=== PATIENT | female | born 1930 | race Caucasian/White ===

== ENCOUNTER 2017-03-21 09:25 | Day surgery (SDC) | payer MEDICARE ==
[2017-03-20 10:08] VITALS: BMI 36.7
[2017-03-21] MEDS ORDERED: Diprivan 20 ML ONE (11:35)
[2017-03-21] MEDS ORDERED: Propofol 200 MG/20 ML VIAL ONE (11:44)
--- NOTE | 2017-03-21 16:51 | OP ---
DATE OF PROCEDURE: 03/21/2017 PROCEDURE: Cardioversion. REFERRING PHYSICIAN: . REASON FOR PROCEDURE: Mrs. Alexander is an 86-year-old woman with prior history of CHF, nonischemic ca rdiomyopathy, paroxysmal atrial fibrillation, who also has complete AV block, she has a BIV ICD in [facility]. She is here on uninterrupted Xarelto anticoagulation. Hence recurrent atrial flutter, we are attempting atrial pace termination and possible cardioversion. Overdrive atrial pacing was attempt ed through the device and turned the patient into atrial fibrillation, which was not paced . S ubsequent to that, a synchronized 35 joule internal shock promptly converted her back to sinus rhyth m. CONCLUSION: 1. Successful internal cardioversion through device. 2. Atrial tachycardia was affected by overdrive pacing, but turned into atrial fibrillation, not si nus rhythm. 3. Adequate functioning biventricular implantable cardioverter defibrillator, although very much ne jenng elective replacement indicator at 2.63 volts and she will be scheduled for generator replaceme nt in near date.
--- NOTE | 2017-03-21 23:32 | OP ---
DATE OF PROCEDURE: 03/21/2017 PROCEDURE: Noninvasive program stimulation stress, implantable cardioverter/defibrillator interroga tion. REASON FOR PROCEDURE: Ms. Alexander is an 86-year-old female who had history of complete AV block, biv entricular ICD implant. She converted into a sustained atypical atrial flutter and she has symptoms suggestive that she might benefit from maintenance of sinus rhythm. The patient is on Xarelto for chronic anticoagulation without interruption. PROCEDURE: The interrogation revealed a [employer] CTA XT ICD device. The battery volt is 2.6 4 volts in the beginning of procedure, 2.63 volts at the end of the procedure, which is at the elect yina replacement indicator. Lead parameters are adequate at 342 ohms, 65 ohms, and ohms in the atrium, RV, and LV respectively. Capture threshold 0.625 volts, 0.375 volts and 0.875 volts at 0.4 milliseconds in each lead sensing 2.3 atrially and over 20 millivolts in right ventricle. Again, p jo is in atrial flutter/fibrillation since the middle of January. Interrogation currently revealed regular atrial flutter with cycle length to about 240 milliseconds. Atrial overdrive pacing was performed with burst and coming down to 160 milliseconds which eventua lly converted the patient back to an atrial fibrillation more irregular atrial fibrillation. This r hythm sustained, therefore we proceeded with the internal cardioversion. Please see separate report . At the end of the case, device was reinterrogated again with voltage 2.63 volts, but otherwise no ch anges on the lead parameters are noted. CONCLUSIONS: 1. Adequate functioning BIV ICD, although at elective replacement indicator. 2. Atrial overdrive pacing did affect the atrial flutter, but eventually just provoked atrial fibri llation. 3. Successful cardioversion internally. PLAN: 1. Continue Xarelto for now. 2. ICD battery replacement planned on 04/11/2017.
--- NOTE | 2017-03-25 18:25 | EKG ---
Test Reason : PREOP Blood Pressure : / mmHG Vent. Rate : 070 BPM Atrial Rate : 076 BPM P-R Int : 000 ms QRS Dur : 156 ms QT Int : 502 ms P-R-T Axes : 000 -51 078 degrees QTc Int : 542 ms Electronic ventricular pacemaker Underlying atrial tachycardia When compared with ECG of 06-OCT-2015 10:32, No significant change was found Confirmed by ERMELINDA GIRON (2) on 03/25/2017 6:24:58 PM Referred By: LINA Confirmed By:ERMELINDA GIRON
== END 2017-03-21 12:45 | disposition home or self-care (01) ==
LOC: CCL 09:25
PROVIDERS: ATTEND Internal Medicine Cardiovascular Disease
PROC: 4A0234Z Measurement of Cardiac Electrical Activity, Percutaneous Approach (ICD-10-PCS; principal; 2017-03-21)
PROC: 5A2204Z Restoration of Cardiac Rhythm, Single (ICD-10-PCS; principal; 2017-03-21)
DX: I48.91 Unspecified atrial fibrillation (principal); E03.9 Hypothyroidism, unspecified; I70.1 Atherosclerosis of renal artery; I42.0 Dilated cardiomyopathy; I47.2 Ventricular tachycardia; I44.1 Atrioventricular block, second degree; Z98.890 Other specified postprocedural states; Z95.0 Presence of cardiac pacemaker; Z98.42 Cataract extraction status, left eye; Z98.41 Cataract extraction status, right eye; Z96.651 Presence of right artificial knee joint; Z79.01 Long term (current) use of anticoagulants; Z79.51 Long term (current) use of inhaled steroids; Z79.899 Other long term (current) drug therapy
CPT/HCPCS: 92960; 93005; 93010; J2704

== ENCOUNTER 2017-05-15 07:35 | Day surgery (SDC) | payer MEDICARE ==
[2017-05-14 17:02] VITALS: BMI 36.3
[2017-05-15 08:42] LABS: #Eosinphils 0.6 thou/uL (0.0-0.7); #Lymphocytes 1.6 thou/uL (1.20-3.40); #Monocytes 0.7 thou/uL (0.11-0.59); #Neutrophils 7.3 thou/uL (1.40-6.50); %Basophils 0.4 % (0.0-1.0); %Eosinophils 5.5 % (0.0-10.0); %Lymphocytes 15.7 % (21.0-51.0); %Monocytes 6.4 % (0.0-10.0); Hematocrit 39.8 % (36.0-47.0); Mean Platelet Volume 8.1 fL (7.4-10.4); Red Blood Cell (RBC) Count 4.03 mill/uL (4.20-5.40); White Blood Cell (WBC) Count 10.1 thou/uL (4.8-10.8)
[2017-05-15 08:46] LABS: Prothrombin Time 32.3 SEC (12.0-14.7)
[2017-05-15 08:48] LABS: PTT 39.7 SEC (22.9-36.1)
[2017-05-15 08:56] LABS: Anion Gap 10 mmol/L (10-20); BUN (Urea Nitrogen) 22 mg/dL (9.8-20.1); Calc. Creatinine Clearance 54 mL/min (70-130); Calcium 9.6 mg/dL (7.8-10.44); Carbon Dioxide 34 mmol/L (23-31); Chloride 102 mmol/L (98-107); Estimated GFR-MDRD 51
[2017-05-15] MEDS ORDERED: Diprivan 20 ML ONE (09:13)
[2017-05-15] MEDS ORDERED: Propofol 200 MG/20 ML VIAL ONE (09:27)
[2017-05-15] MEDS ORDERED: FLU VACC TS2017-18 (>65YR) 0.5 ML SYRINGE IM ONE (11:00)
--- NOTE | 2017-05-15 12:22 | EKG ---
Test Reason : PREOP Blood Pressure : / mmHG Vent. Rate : 063 BPM Atrial Rate : 072 BPM P-R Int : 000 ms QRS Dur : 152 ms QT Int : 536 ms P-R-T Axes : 000 -48 076 degrees QTc Int : 548 ms Electronic ventricular pacemaker PVC's When compared with ECG of 21-MAR-2017 10:26, Vent. rate has decreased BY [address] David MOODY ([id number]) on 05/15/2017 12:22:42 PM Referred By: LINA Confirmed By:DR. David MODOY
--- NOTE | 2017-05-15 16:12 | OP ---
PROCEDURE NOTE: Date: 05/15/17 This is an 86-year-old female with atrial flutter who was advised to undergo internal pace terminati on of the atrial flutter. This was attempted using the already implanted biventricular AICD with the attempt of the pacing her out of the atrial flutter. She then developed atrial fibrillation. The pa tient was then given short acting propofol for conscious sedation, and then using one attempt international trade specialist al cardioversion at 35 joules from the AICD device, she was successfully converted from her atrial f ibrillation back to a normal sinus rhythm. There were no difficulties or complications encountered. The atrial therapies were turned on on the device and also the lower rate was set at 70.
== END 2017-05-15 11:29 | disposition home or self-care (01) ==
LOC: CCL 07:35
PROVIDERS: ATTEND Internal Medicine Cardiovascular Disease
DX: I48.0 Paroxysmal atrial fibrillation (principal); I50.22 Chronic systolic (congestive) heart failure; I42.8 Other cardiomyopathies; I44.2 Atrioventricular block, complete; I38 Endocarditis, valve unspecified; I70.1 Atherosclerosis of renal artery; E03.9 Hypothyroidism, unspecified; Z79.01 Long term (current) use of anticoagulants; Z79.899 Other long term (current) drug therapy; Z95.810 Presence of automatic (implantable) cardiac defibrillator; Z96.651 Presence of right artificial knee joint; Z98.890 Other specified postprocedural states
CPT/HCPCS: 80048; 85025; 85610; 85730; 92960; 93005; G0008; Q2036; 36415; 90471; 90682; 93010; J2704